=== PATIENT | male | born 1945 | race Caucasian/White ===

== ENCOUNTER 2018-05-04 06:38 | Outpatient (CLI) | payer MEDICARE, OTHER ==
[~2018-05-04] VITALS: Ht 180.3 cm; Wt 83.2 kg
--- NOTE | ~2018-05-04 | OP ---
PATIENT NAME: NGUYỄN FELTON MEDICAL RECORD: [id number] :49 LOCATION:D.CAT ADMISSION DATE: SURGEON: KOSTA GIVENS MD DATE OF OPERATION: 05/04/2018 PROCEDURE: Left heart catheterization, LV gram, coronary angiogram. EX ASSISTANT/PROGRAM DIRECTOR: Kosta Givens MD PROCEDURE IN DETAIL: The patient was brought to cardiac catheterization lab in a stable condition. The patient had the right wrist sterilely prepped and draped. The patient had a 6-Honduran sheath placed in the right radial artery using modified Seldinger technique. The patient then had selective angiography of the left ventricular cavity, the right coronary artery and the left main coronary artery respectively. FINDINGS: 1. The RCA is a large dominant vessel with 2 segmental stenoses of 70% both ostially and in the mid with good flow characteristics distally. 2. The left main has plaquing. 3. The LAD has a mid diagonal with an ostial 80% to 90% stenosis and a mid to distal LAD that is 90% stenosed. 4. The circumflex has a 70% mid lesion and a 50% proximal OM. HEMODYNAMICS: Left ventricular ejection fraction 65%. There is no significant mitral regurgitation. There is no gradient across the aortic valve. The ejection fraction is 60%. IMPRESSION: Multivessel coronary artery disease. RECOMMENDATIONS: Consider coronary artery bypass grafting. TRANSINT:[id number] Voice Confirmation ID: [id number] DOCUMENT ID: [id number] KOSTA GIVENS MD at 0849 CC: [id number] DICTATION DATE: 05/04/18 0928 CORRESPONDENCE SECTION SUPERVISOR: 05/04/18 0947 DEP CLI 05/04/18 [place] [id number]
--- NOTE | ~2018-05-04 | HEMODYNAMI ---
PATIENT:NGUYỄN FELTON MEDICAL RECORD: [id number] : 49 LOCATION:DANGE ADMISSION DATE: 05/04/18 Generatedon:05/04/20189:27 Patient name: NGUYỄN FELTON Patient #: [id number] SSN: : 1945 Date of study: 05/04/2018 Page: Of Hemodynamic Procedure Report Patient Data Patient Demographics Procedure consent was obtained First Name: NGUYỄN Gender: Male Last Name: JOSE FRANCISCO : 1945 Patient #: [id number] Age: 72 year(s) Race: Unknown Additional ID: [id number] Contact details Address: [address] [place] [address] State: [place] City: [place] Zip code: [address] Past Medical History Allergies: No known allergies Admission Admission Data Admission Date: 05/04/2018 Admission Time: 6:38 Admit Source: Other Height (in.): 5.11 BSA: 0.31 (m2) Height (cm.): 12.98 BMI: 5196.53 (kg/m2) Weight (lbs.): 193 Weight (kg.): 87.54 Lab Results Lab Result Date: 05/04/2018 Lab Result Time: 0:00 Biochemistry Name Units Result Min Max BUN mg/dl 16 --(---*)-- 7 18 Creatinine mg/dl 0.8 --(-*--)-- 0.6 1.3 CBC Name Units Result Min Max Hemoglobin g/dl 15.1 --(-*--)-- 13.5 17.5 Procedure Procedure Types Cath Procedure Diagnostic Procedure LHC LHC w/Coronaries Sedation Charges Moderate Sedation up to 15 minutes Procedure Description Procedure Date Procedure Date: 05/04/2018 Procedure Start Time: 9:10 Procedure End Time: 9:27 Procedure Staff Name Function Kosta Leung MD Performing Physician Mariel Alford RT Monitor Alfonso Frias RT Scrub Cas Patel RN Nurse Procedure Data Cath Procedure Fluoroscopy Diagnostic fluoroscopy Total fluoroscopy Time: 2.3 time: 2.3 min min Diagnostic fluoroscopy Total fluoroscopy dose: 609 dose: 609 mGy mGy Contrast Material Contrast Material Type Amount (ml) Isovue 300 49 Entry Location Entry Primary Successful Side Size Upsize Upsize Entry Closure Payne ccessful Closure Location (Fr) 1 (Fr) 2 (Fr) Remarks Device Remarks Radial Right 6 Fr Mechanical artery Short Compression Estimated blood loss: 5 ml Diagnostic catheters Device Type Used For End Catheter Placement DIAGNOSTIC Junior 110cm Procedure 5Fr catheter ([id number]) Procedure Complications No complications Procedure Medications Medication Administration Route Dosage 0.9% NaCl I.V. 100 ml/hr Oxygen etCO2 Nasal cannula 2 l/min Heparin Flush Bag added to field 2 bags (1000units/500ml NS) Lidocaine 2% added to field 20 Radial Cocktail added to field 1 syringe (Verapomil 2mg/Nitro 400mcg/Heparin 1500units) Versed I.V. 1 mg Fentanyl I.V. 25 mcg Radial Cocktail I.A. 1 syringe (Verapomil 2mg/Nitro 400mcg/Heparin 1500units) Hemodynamics Rest BSA: 0.31 (m2) HGB: 15.1 (g/dl) O2 Consumption: Estimated: 33.3 (ml/min) O2 Cons umption indexed: Estimated:107.42 (ml/min/m) Heart Rate: 48 (bpm) Pressure Samples Time Site Value (mmHg) Purpose Heart Use Rate(bpm) 9:19 LV 121/-7,8 EDP 60 Gradients Valve Time Site Site Mean SEP/DFP Peak To Heart Use 1 2 (mmHg) (sec/min) Peak Rate (mmHg) (bpm) Aortic 9:20 LV AO 71 Snapshots Pre Cath Intra NCS Post Cath Vital Signs Time Heart Resp SPO2 etCO2 NIBP (mmHg) Rhythm Pain Sedation Rate (ipm) (%) (mmHg) Status Level (bpm) 8:56:19 75 18 100 33 140/81(118) Paced 0 (11) 10(A) , No pain 9:01:02 60 17 100 33 127/75(102) Paced 0 (11) 10(A) , No pain 9:05:40 60 16 100 24.7 132/77(103) Paced 0 (11) 10(A) , No pain 9:10:22 60 15 96 36 119/69(97) Paced 0 (11) 9(A) , No pain 9:14:57 60 15 96 0 125/81(95) Paced 0 (11) 9(A) , No pain 9:19:37 60 15 96 0 110/64(79) Paced 0 (11) 10(A) , No pain 9:24:48 60 15 94 0 119/67(94) Paced 0 (11) 10(A) , No pain Medications Time Medication Route Dose Verified Delivered Reason Notes Effectiveness by by 9:01:37 0.9% NaCl I.V. 100 Cas Cas Per ml/hr Amanda Patel physician RN RN 9:01:47 Oxygen etCO2 2 l/min Cas Cas Per Nasal Amanda Patel physician cannula RN RN 9:02:02 Heparin Flush added 2 bags Cas Cas used for Bag to Amanda Patel procedure (1000units/500ml field RN RN NS) 9:02:12 Lidocaine 2% added 20ml Cas Cas for local to vial Lorigan Lorigan anesthetic RN RN 9:02:22 Radial Cocktail added 1 Cas Cas used for (Verapomil to syringe Xeniaigan Amanda procedure 2mg/Nitro field LIGHT RN 400mcg/Heparin 1500units) 9:05:16 Versed I.V. 1 mg Cas Cas for sedation Amanda Patel RN RN 9:05:25 Fentanyl I.V. 25 mcg Cas Cas for sedation Amanda Patel RN RN 9:15:13 Radial Cocktail I.A. 1 Cas Kosta for (Verapomil syringe Amanda Leung MD vasodilation 2mg/Nitro RN 400mcg/Heparin 1500units) Procedure Log Time Note 8:41:19 Informed consent obtained and on chart 8:41:23 Admit Source: Other 8:41:49 Diagnostic Cath status Elective 8:41:50 Cas Paetl RN sent for patient. Start room use. 8:41:52 Time tracking: Regular hours (M-F 7:00 - 5:00) 8:41:55 Plan of Care:Hemodynamics will remain stable., Cardiac rhythm will remain stable., Comfort level will be maintained., Respiratory function will remain adequate., Patient/ family verbilizes understanding of procedure., Procedure tolerated without complication., Recovers from procedure without complications.. 8:44:49 H&P Date Dictated: 05/03/2018 Within 30 days and on chart., H&P Addendum completed by physician on day of procedure. (MUST COMPLETE FOR ALL OUTPATIENTS). 8:44:55 Patient allergic to No known allergies 8:45:03 Patient Height : 5.11 inches 8:45:07 Patient Weight : 193 lbs 8:46:54 Lab Result : BUN 16 mg/dl 8:46:54 Lab Result : Hemoglobin 15.1 g/dl 8:46:54 Lab Result : Creatinine 0.8 mg/dl 8:48:30 Patient received from Pre/Post Procedure Room to CCL 1 Alert and oriented. Tansferred to table in Supine position. 8:48:31 Warm blankets applied, and michael hugger turned on for patient comfort. 8:48:32 Correct patient and procedure confirmed by team. 8:48:33 ECG and BP/O2 sat monitors applied to patient. 8:55:27 Vital chart was started 8:55:30 Baseline sample Acquired. 9:01:31 Rhythm: paced 9:01:32 Full Disclosure recording started 9:01:33 Pre-procedure instructions explained to patient. 9:01:33 Pre-op teaching completed and patient verbalized understanding. 9:01:35 Family in patients room. 9:01:36 Patient NPO since Midnight. 9:01:37 0.9% NaCl 100 ml/hr I.V. was administered by Cas Patel RN; Per physician; 9:01:38 Is the patient allergic to Iodine/contrast media? No. 9:01:39 Is patient on blood thinner?Yes 9:01:41 ACC The patient was administered the following blood thiners within the last 24 hours: ACCPlavix 9:01:42 Patient diabetic? Yes. 9:01:43 If diabetic: On Metformin? Yes 9:01:46 If on Metformin: Last Dose? 05/03/2018 9:01:47 Oxygen 2 l/min etCO2 Nasal cannula was administered by Cas Patel RN; Per physician; 9:01:51 Previous problem with sedation/anesthesia? Yes ? 9:01:53 Snore? No 9:01:54 Sleep apnea? No 9:01:55 Deviated septum? No 9:01:56 Opens mouth fully? Yes 9:01:57 Sticks out tongue? Yes 9:01:58 Airway obstruction? No ? 9:01:59 Dentures? Yes ? 9:02:02 Heparin Flush Bag (1000units/500ml NS) 2 bags added to field was administered by Cas Patel RN; used for procedure; 9:02:12 Lidocaine 2% 20ml vial added to field was administered by Cas Patel RN; for local anesthetic; 9:02:17 Modified Kael's test Radial < 7 seconds 9:02:21 Patient pain scale 0/10 ?. 9:02:22 Radial Cocktail (Verapomil 2mg/Nitro 400mcg/Heparin 1500units) 1 syringe added to field was administered by Cas Patel RN; used for procedure; 9:02:25 IV patent on arrival in left antecubital with 0.9% NaCl at [facility]. 9:02:29 Lab results completed and on chart. 9:02:39 Right Radial & Right Groin area was prepped with chlora-prep and draped in sterile fashion 9:02:39 Alarms reviewed by R. N. 9:02:40 Sharps counted by scrub and verified by R.N. 9:02:42 --------ALL STOP TIME OUT------ 9:02:44 Final Timeout: patient, procedure, and site verified with staff and physician. All members of the team are in agreement. 9:02:45 Right Radial & Right Groin site verified by team. 9:02:49 Physical assessment completed. ASA score P 2 - A patient with mild systemic disease as per Kosta Leung MD. 9:02:52 Sedation plan: IV Moderate Sedation Medication:Versed, Fentanyl 9:03:18 Use device set Radial Dx or PCI 9:03:19 ACIST Syringe (01523) opened to sterile field. 9:03:20 ACIST Hand Control (34915) opened to sterile field. 9:03:21 ACIST Manifold (43799) opened to sterile field. 9:03:21 Tegaderm 4 x 4 (1626W) opened to sterile field. 9:03:23 Bag Decanter () opened to sterile field. 9:03:24 Medline Cath Pack ([id number]) opened to sterile field. 9:03:24 DIAGNOSTIC WIRE .035 260cm J wire (627510) opened to sterile field. 9:03:24 MBrace Wrist Support ([id number]) opened to sterile field. 9:03:25 SHEATH 6Fr Prelude Radial ([id number]) opened to sterile field. 9:05:16 Versed 1 mg I.V. was administered by Cas Patel RN; for sedation; 9:05:25 Fentanyl 25 mcg I.V. was administered by Cas Patel RN; for sedation; 9:09:51 Zero performed for pressure channel P1 9:10:03 Zero performed for pressure channel P1 9:10:13 Procedure started. 9:10:20 Local anesthetic to right radial artery with Lidocaine 2% by Kosta Leung MD.INITIAL ACCESS ONLY 9:15:13 Radial Cocktail (Verapomil 2mg/Nitro 400mcg/Heparin 1500units) 1 syringe I.A. was administered by Kosta Leung MD; for vasodilation; 9:16:41 A 6 Fr Short sheath was inserted into the Right Radial artery 9:16:50 A DIAGNOSTIC Junior 110cm 5Fr catheter (832655) was advanced over the wire and used for Procedure. 9:18:11 LV gram done using [place]OLTON 9:18:27 Injector settings: Ml/sec: 12, Volume: 8, 9:19:32 LV hemodynamics recorded. 9:20:02 EF : 55 % 9:20:15 RCA angiography performed. 9:22:28 LCA angiography performed. 9:23:07 Catheter removed. 9:23:29 Procedure ended.(Physican Out) 9:23:57 Sheath removed intact; hemostasis achieved with Mechanical Compression to the Right Radial artery. 9:24:58 Fluoroscopy time 02.30 minutes. 9:25:08 Fluoroscopy dose: 609 mGy 9:25:08 Flurop Dose total: 609 9:25:13 Contrast amount:Isovue 300 49ml. 9:25:17 Sharps counted by scrub and verified by R.N. 9:25:25 Post-procedure physical assessment completed. ASA score P 2 - A patient with mild systemic disease as per Kosta Leung MD. 9:25:29 Post procedure rhythm: unchanged. 9:25:30 Estimated blood loss: 5 ml 9:25:32 Post procedure instruction explained to patient.Patient verbalizes understanding. 9:25:32 Patient needs reinforcement of post procedure teaching. 9:26:02 Procedure type changed to Cath procedure, Diagnostic procedure, LHC, LHC w/Coronaries, Sedation Charges, Moderate Sedation up to 15 minutes 9:26:44 TR BAND Standard ([id number]) opened to sterile field. 9:26:50 TR band inflated with 12cc of air. 9:27:18 Procedure and supply charges have been captured, reviewed, submitted and are correct. 9:27:20 Procedure Complication : No complications 9::23 Vital chart was stopped 9::23 See physician's report for complete and final results. 9:27:25 Report given to Pre/Post Procedure Room. 9:27:27 Patient transfered to Pre/Post Procedure Room with Bed. 9:27:29 Procedure ended. 9:27:29 Full Disclosure recording stopped 9:27:35 End room use (Document Last) Device Usage Item Name Manufacture Quantity Catalog Number Hospital Part Current M inimal Lot# / Charge Number Stock Stock Serial# Code ACIST Syringe Acist 1 70011 657596 389311 728117 2 0 (03202) [employer] ACIST Hand Acist 1 78061 809846 610113 811247 5 Control (60730) [employer] ACIST Manifold Acist 1 20558 352574 744579 045088 5 (22884) [employer] Tegaderm 4 x 4 3M 1 1626W 969376 793921 481332 5 (1626W) Bag Decanter Microtek 1 2002S 201074 83713 274778 5 (2002S) Medical Inc. Medline Cath Cardinal 1 [id number] 373602 35679 016338 5 [facility] ([id number]) DIAGNOSTIC WIRE [facility] 1 211883 314077 039201 231544 3 0 .035 260cm J wire (649568) MBrace Wrist Advanced 1 140-0250-00 953559 89156 730590 5 Support Vascular (001436403) Dynamics SHEATH 6Fr Merit 1 [id number] 054593 732937 633143 5 Prelude Radial Medical ([id number]) DIAGNOSTIC Terumo 1 40-5433 323851 168546 889065 5 Junior 110cm 5Fr catheter (464772) TR BAND Terumo 1 [id number] 444358 456582 881016 4 0 Standard ([id number]) Signature Audit [place] Stage Time Signature Unsigned Intra-Procedure 05/04/2018 Mariel Alford 9:27:50 AM RT(R) Signatures Monitor : Mariel Alford Signature : RT Date : Time : [address] [address]
[2018-05-04] MEDS ORDERED: GLUCOPHAGE500 MG PO (07:30)
[2018-05-04] MEDS ORDERED: ISOSORBIDE MONO60 M1 PO (07:31)
[2018-05-04] MEDS ORDERED: PLAVIX75 MG PO (07:31)
[2018-05-04] MEDS ORDERED: HUMULIN N100 U/ML SC (07:32)
[2018-05-04] MEDS ORDERED: AVAPRO150 MG PO (07:32)
[2018-05-04] MEDS ORDERED: BAYER CHEWABLE81 MG PO (07:33)
[2018-05-04] MEDS ORDERED: CRESTOR40 MG PO (07:33)
[2018-05-04] MEDS ORDERED: CO Q-10100 MG PO (07:34)
[2018-05-04] MEDS ORDERED: FISH OIL 1,0001 CA1 PO (07:34)
[2018-05-04] MEDS ORDERED: MULTI-DAY VITAM1 TAB PO (07:34)
[2018-05-04 07:50] VITALS: BP 150/66; BMI 25.5
[2018-05-04 08:00] LABS: BASOPHILS 0.5 % (0-2); EOSINOPHILS 2.5 % (0-7); HEMATOCRIT 43.5 % (42.0-54.0); HEMOGLOBIN 15.1 g/dL (13.5-17.5); IMMATURE GRANULOCYTES 0.3 % (0-5); LYMPHOCYTES 31.8 % (15-50); MCH 32.6 pg (26.0-34.0); MCHC 34.7 g/dL (31.0-37.0); MEAN PLATELET VOLUME 9.8 fL (7.4-10.4); NEUTROPHILS 51.9 % (40-80); PLATELET COUNT 182 10x3/uL (130-400); RBC 4.63 10x6/uL (4.20-6.10); RDW 12.7 % (11.5-14.5); WBC 5.9 10x3/uL (4.8-10.8)
[2018-05-04 08:13] LABS: CALC OSMOLALITY 275 mosm/kg (275-300); CALCIUM 9.3 mg/dL (8.5-10.1); CHLORIDE - SERUM 101 mmol/L (98-107); CREATININE - SERUM 0.8 mg/dL (0.6-1.3); GLUCOSE 113 mg/dL (74-106); POTASSIUM - SERUM 4.7 mmol/L (3.5-5.1); SODIUM 137 mmol/L (136-145); UREA NITROGEN 16 mg/dL (7-18); eGFR NON AFRICAN AMERICAN > 90 mL/min (90-120)
[2018-05-04 10:26] VITALS: Ht 180.3 cm; Wt 83.2 kg
[2018-05-04 11:00] LABS: PLT FUNCT.(P2Y12) PLAVIX 82 PRU (194-418)
[2018-05-09] MEDS ORDERED: HUMULIN N100 U/ML SC (09:48)
== END 2018-05-04 14:30 | disposition home or self-care (01) ==
LOC: D.CATH 06:38
PROVIDERS: Internal Medicine Cardiovascular Disease; Thoracic Surgery (Cardiothoracic Vascular Surgery)
DX: I25.119 Atherosclerotic heart disease of native coronary artery with unspecified angina pectoris (principal); Z01.812 Encounter for preprocedural laboratory examination

== ENCOUNTER 2018-05-09 10:00 | Inpatient (IN) | payer MEDICARE, OTHER ==
[~2018-05-09] VITALS: Ht 180.3 cm; Wt 91.5 kg
--- NOTE | ~2018-05-09 | TEE ---
PATIENT:NGUYỄN FELTON MEDICAL RECORD: [id number] LOCATION:[place] [address] AGE OF PATIENT: 72 ADMISSION DATE: 05/11/18 SEX: M REFERRING PHYSICIAN: INTERPRETING PHYSICIAN: AVRIL FELDER MD TRANSESOPHAGEAL ECHOCARDIOGRAM Date: DESIRAE CHARGE INDICATIONS: PREMEDICATIONS: PATIENT'S RESPONSE PROCEDURE DOPPLER MEASUREMENTS: LVIT LA PA RA LVOT RVOT Asc. Ao AV Gradient Peak AV Mean AV Area MV Gradient Peak MV Mean MV Area INTERPRETATION: Doppler: 2-D: COLOR FLOW DOPPLER NORMAL SALINE STUDY: MISCELLANOUS: DIAGNOSIS: PLAN: Cinder Pitman: Compliance Tester: COMMENTS: DATE OF SERVICE: 05/11/2018 PROCEDURE: Transesophageal echo evaluation of valvular structures during bypass surgery. FINDINGS: 1. Left ventricular chamber size is within normal limits. Left ventricular systolic function is normal. Overall ejection fraction estimated at 50%. 2. Left atrium, right atrium, right ventricle chamber size is within normal TRANSESOPHAGEAL ECHOCARDIOGRAM REPORT [id number] NGUYỄN FELTON limits. 3. Valvular structures have normal structure and motion. 4. Doppler interrogation only reveals trace to mild mitral regurgitation, no other valvular insufficiency or stenosis. 5. No evidence of pericardial effusion or left ventricular thrombus. TRANSINT:[id number] Voice Confirmation ID: [id number] DOCUMENT ID: [id number] at 1859 CC: [id number] DICTATION DATE: 05/12/18 1151 CLINICAL NURSING PROFESSOR: 05/12/18 1204 ADM IN [facility] [address] [place] [address]
--- NOTE | ~2018-05-09 | OP ---
PATIENT NAME: NGUYỄN FELTON MEDICAL RECORD: [id number] :49 LOCATION:D.CVI D.CV04 ADMISSION DATE:05/11/18 SURGEON: LD LOPEZ MD DATE OF OPERATION: 05/11/2018 SURGEON: Ld Lopez MD RESEARCH GENETICIST: Justo Everett MD OPERATION PERFORMED: Coronary artery bypass graft times 3 (left internal mammary artery to LAD, reverse saphenous vein graft from aorta to obtuse marginal and aorta to posterior descending artery). PREOPERATIVE DIAGNOSIS: Coronary artery disease. POSTOPERATIVE DIAGNOSIS: Coronary artery disease. ANESTHESIA: General endotracheal anesthesia. ESTIMATED BLOOD LOSS: Total cardiopulmonary bypass with Cell Saver retransfusion. COMPLICATIONS: None. SPECIMENS: None. CONDITION: Stable. DISPOSITION: CV ICU. OPERATIVE FINDINGS: 1. Good quality greater saphenous vein from the right lower leg and lower thigh. 2. Good quality internal mammary artery, slightly smaller in caliber distally, but with excellent flow. 3. Somewhat enlarged right heart with good contractility throughout and normal DESIRAE before and after cardiopulmonary bypass. 4. LAD was a severely diseased vessel throughout even beyond the stent with diffuse plaque extending all the way to the apex, anastomosis in the softest spot possible and a 1.5 mm probe passed distally to the apex. Good Doppler signal after anastomosis and after reversal of heparin. 5. Obtuse marginal 2.0 mm. 6. Right coronary was calcified throughout with no site for anastomosis. Posterior descending artery was slightly smaller 1.5 mm. The diagonal vessels were small and not grafted. OPERATIVE INDICATION: Coronary artery disease. OPERATIVE PROCEDURE IN DETAIL: The patient was brought to the operating suite. General anesthesia was obtained, the patient was prepped and draped. Greater saphenous vein was harvested from the right lower extremity utilizing bridging incisions. Side branches were divided with clips. Vessels ligated proximal and distally, removed. Side branches were tied and the vein was made hemostatic. Leg was closed in 2 layers including clips. OPERATIVE REPORT [id number] NGUYỄN FELTON Median sternotomy incision was made. Subcutaneous tissue divided with electrocautery. The sternum was divided with a saw. The left hemisternum was elevated. The pleural cavity was entered. Left internal mammary artery and vein was taken down as a pedicle graft. Sternal retractor was placed. Pericardium was opened. Heparin was given. Aorta was cannulated. Dual stage venous cannula was inserted. The internal mammary was clipped distally and made ready for anastomosis. The patient was placed on cardiopulmonary bypass after activating clotting time was appropriately elevated. Sites for distal anastomoses were selected. Antegrade cardioplegia needle was inserted. The patient's temperature was allowed to drift downwardly during crossclamp time. Crossclamp was placed. Cardioplegia was given antegrade and this was repeated at 15 to 20 minute intervals including down the completed vein grafts. Distal anastomosis was performed in standard technique. Proximal anastomosis with single cross-clamp technique. The aortic root was de-aired with the patient in Trendelenburg position by removing the clamp, tying the proximal anastomoses, deairing the vein graft, and then restoring flow. Proximal and distal anastomotic sites were inspected for bleeding. The patient fully rewarmed, weaned from cardiopulmonary bypass and was stable. The patient was decannulated. Cannulation sites were oversewn. Protamine was given. Thorough irrigation was undertaken. All grafts lay appropriately. Drains were placed in the mediastinum and left pleural cavity. The patient's indwelling atrioventricular pacemaker was working appropriately. The left chest was evacuated and irrigated. The internal mammary harvest site was inspected. Sternum was closed with wires. Fascia was closed. Subcutaneous tissue was closed. Skin was closed with clips. Dressing was intact. The patient was taken to the ICU in stable condition. TRANSINT:[id number] Voice Confirmation ID: [id number] DOCUMENT ID: [id number] LD LOPEZ MD at 1101 CC: JOHNSON BLACKMAN M.D. [id number] DICTATION DATE: 05/11/18 1225 HEAD BONE GRINDER: 05/11/18 1241 ADM IN [place] [id number] [place] [address]
[~2018-05-09 10:00] MED LIST: AVAPRO150 MG PO; BAYER CHEWABLE81 MG PO; CO Q-10100 MG PO; CRESTOR40 MG PO; FISH OIL 1,0001 CA1 PO; GLUCOPHAGE500 MG PO; HUMULIN N100 U/ML SC; ISOSORBIDE MONO60 M1 PO; MULTI-DAY VITAM1 TAB PO; PLAVIX75 MG PO
[2018-05-09 11:40] LABS: BASOPHILS 0.6 % (0-2); EOSINOPHILS 3.7 % (0-7); HEMOGLOBIN 14.1 g/dL (13.5-17.5); LYMPHOCYTES 37.5 % (15-50); MCH 32.1 pg (26.0-34.0); MCHC 34.4 g/dL (31.0-37.0); MCV 93.4 fL (80.0-100.0); MONOCYTES 8.7 % (2-11); NEUTROPHILS 49.5 % (40-80); PLATELET COUNT 198 10x3/uL (130-400); RBC 4.39 10x6/uL (4.20-6.10); RDW 12.6 % (11.5-14.5); WBC 4.9 10x3/uL (4.8-10.8)
[2018-05-09 11:50] LABS: APPEARANCE CLEAR (CLEAR); BILIRUBIN NEGATIVE (NEGATIVE); COLOR YELLOW (YELLOW); GLUCOSE 1000 mg/dL (NEGATIVE); KETONE NEGATIVE (NEGATIVE); NITRITE NEGATIVE (NEGATIVE); PROTEIN NEGATIVE (NEGATIVE); SPECIFIC GRAVITY 1.015 (1.005-1.020); UROBILINOGEN NORMAL (NORMAL)
[2018-05-09 11:51] LABS: APTT 26.5 SECONDS (22.8-39.4); INR 1.03 (0.85-1.17); PROTIME 13.1 SECONDS (11.6-15.0)
[2018-05-09 11:57] LABS: PLT FUNCT.(P2Y12) PLAVIX 176 PRU (194-418)
[2018-05-09 12:05] LABS: ALBUMIN 3.9 g/dL (3.4-5.0); ALKALINE PHOSPHATASE 37 U/L (46-116); ALT (SGPT) 33 U/L (10-68); BILIRUBIN - TOTAL 0.32 mg/dL (0.2-1.3); CALC OSMOLALITY 273 mosm/kg (275-300); CARBON DIOXIDE 29.7 mmol/L (21.0-32.0); CHLORIDE - SERUM 100 mmol/L (98-107); CHOLESTEROL, TOTAL 132 mg/dL (0-200); CREATININE - SERUM 0.8 mg/dL (0.6-1.3); GLUCOSE 104 mg/dL (74-106); PHOSPHOROUS 2.8 mg/dL (2.5-4.9); POTASSIUM - SERUM 3.9 mmol/L (3.5-5.1); PROTEIN - SERUM 8.5 g/dL (6.4-8.2); SODIUM 137 mmol/L (136-145); T4 THYROXIN - FREE 0.98 ng/dL (0.76-1.46); THYROID STIMULATING HORMONE 4.07 uIU/mL (0.36-3.74); UREA NITROGEN 12 mg/dL (7-18); URIC ACID 4.6 mg/dL (2.6-7.2); eGFR NON AFRICAN AMERICAN > 90 mL/min (90-120)
[2018-05-11] VITALS (47 sets, daily range): BP systolic 93–157; BP diastolic 49–72; BMI 25.5; BMI 27.3
[2018-05-12] VITALS (25 sets, daily range): BP systolic 104–140; BP diastolic 49–75; Ht 180.3 cm; Wt 91.5 kg
[2018-05-12 06:27] LABS: HEMATOCRIT 38.8 % (42.0-54.0); HEMOGLOBIN 12.9 g/dL (13.5-17.5); MCH 31.3 pg (26.0-34.0); MCHC 33.2 g/dL (31.0-37.0); MCV 94.2 fL (80.0-100.0); MEAN PLATELET VOLUME 10.1 fL (7.4-10.4); RBC 4.12 10x6/uL (4.20-6.10); RDW 13.3 % (11.5-14.5); WBC 12.6 10x3/uL (4.8-10.8)
[2018-05-12 06:35] LABS: ALBUMIN 3.1 g/dL (3.4-5.0); ANION GAP 11.5 mmol/L (8-16); BILIRUBIN - TOTAL 0.74 mg/dL (0.2-1.3); CALCIUM 7.3 mg/dL (8.5-10.1); CARBON DIOXIDE 25.7 mmol/L (21.0-32.0); CREATININE - SERUM 1.1 mg/dL (0.6-1.3); POTASSIUM - SERUM 4.2 mmol/L (3.5-5.1); PROTEIN - SERUM 6.4 g/dL (6.4-8.2)
[2018-05-13] VITALS (24 sets, daily range): BP systolic 100–152; BP diastolic 49–87
[2018-05-13 05:27] LABS: HEMATOCRIT 32.7 % (42.0-54.0); HEMOGLOBIN 10.7 g/dL (13.5-17.5); MCH 31.3 pg (26.0-34.0); MCHC 32.7 g/dL (31.0-37.0); MCV 95.6 fL (80.0-100.0); MEAN PLATELET VOLUME 9.7 fL (7.4-10.4); RBC 3.42 10x6/uL (4.20-6.10); RDW 13.4 % (11.5-14.5)
[2018-05-13 05:51] LABS: ALBUMIN 2.6 g/dL (3.4-5.0); ALKALINE PHOSPHATASE 28 U/L (46-116); ALT (SGPT) 24 U/L (10-68); BILIRUBIN - TOTAL 0.59 mg/dL (0.2-1.3); CALCIUM 7.2 mg/dL (8.5-10.1); CARBON DIOXIDE 27.7 mmol/L (21.0-32.0); CHLORIDE - SERUM 103 mmol/L (98-107); CREATININE - SERUM 0.9 mg/dL (0.6-1.3); POTASSIUM - SERUM 4.2 mmol/L (3.5-5.1); PROTEIN - SERUM 5.8 g/dL (6.4-8.2); SODIUM 135 mmol/L (136-145); UREA NITROGEN 12 mg/dL (7-18); eGFR NON AFRICAN AMERICAN 89 mL/min (90-120)
[2018-05-13 05:55] LABS: CALC OSMOLALITY 271 mosm/kg (275-300); GLUCOSE 136 mg/dL (74-106)
[2018-05-14] VITALS (25 sets, daily range): BP systolic 105–125; BP diastolic 44–97
[2018-05-14 06:13] LABS: HEMATOCRIT 32.1 % (42.0-54.0); HEMOGLOBIN 10.6 g/dL (13.5-17.5); MCH 31.4 pg (26.0-34.0); MEAN PLATELET VOLUME 10.1 fL (7.4-10.4); RBC 3.38 10x6/uL (4.20-6.10); RDW 13.3 % (11.5-14.5); WBC 11.7 10x3/uL (4.8-10.8)
[2018-05-14 06:31] LABS: ALBUMIN 2.6 g/dL (3.4-5.0); BILIRUBIN - TOTAL 0.65 mg/dL (0.2-1.3); CALCIUM 7.7 mg/dL (8.5-10.1); CARBON DIOXIDE 26.4 mmol/L (21.0-32.0); CREATININE - SERUM 1.1 mg/dL (0.6-1.3); POTASSIUM - SERUM 4.4 mmol/L (3.5-5.1); PROTEIN - SERUM 6.5 g/dL (6.4-8.2)
[2018-05-15] VITALS (22 sets, daily range): BP systolic 100–129; BP diastolic 54–68
[2018-05-15 06:16] LABS: ALBUMIN 2.6 g/dL (3.4-5.0); ALKALINE PHOSPHATASE 37 U/L (46-116); ALT (SGPT) 31 U/L (10-68); CALC OSMOLALITY 279 mosm/kg (275-300); CALCIUM 7.8 mg/dL (8.5-10.1); CARBON DIOXIDE 27.5 mmol/L (21.0-32.0); CHLORIDE - SERUM 100 mmol/L (98-107); GLUCOSE 200 mg/dL (74-106); MAGNESIUM - SERUM 1.8 mg/dL (1.8-2.4); POTASSIUM - SERUM 4.1 mmol/L (3.5-5.1); PROTEIN - SERUM 6.5 g/dL (6.4-8.2); SODIUM 136 mmol/L (136-145); UREA NITROGEN 18 mg/dL (7-18); eGFR NON AFRICAN AMERICAN 78 mL/min (90-120)
[2018-05-15 06:30] LABS: HEMATOCRIT 30.5 % (42.0-54.0); HEMOGLOBIN 10.1 g/dL (13.5-17.5); MCH 31.4 pg (26.0-34.0); MCHC 33.1 g/dL (31.0-37.0); MCV 94.7 fL (80.0-100.0); MEAN PLATELET VOLUME 10.1 fL (7.4-10.4); RBC 3.22 10x6/uL (4.20-6.10); RDW 13.3 % (11.5-14.5)
[2018-05-15 06:39] LABS: WBC 8.1 10x3/uL (4.8-10.8)
[2018-05-16] VITALS (8 sets, daily range): BP systolic 108–135; BP diastolic 52–86
[2018-05-16 05:47] LABS: HEMATOCRIT 32.3 % (42.0-54.0); HEMOGLOBIN 10.8 g/dL (13.5-17.5); MCH 31.5 pg (26.0-34.0); MCHC 33.4 g/dL (31.0-37.0); MCV 94.2 fL (80.0-100.0); MEAN PLATELET VOLUME 9.8 fL (7.4-10.4); RBC 3.43 10x6/uL (4.20-6.10); RDW 13.4 % (11.5-14.5); WBC 7.7 10x3/uL (4.8-10.8)
[2018-05-16 06:06] LABS: ALBUMIN 2.8 g/dL (3.4-5.0); ALKALINE PHOSPHATASE 40 U/L (46-116); ALT (SGPT) 40 U/L (10-68); BILIRUBIN - TOTAL 0.73 mg/dL (0.2-1.3); CALC OSMOLALITY 278 mosm/kg (275-300); CALCIUM 7.9 mg/dL (8.5-10.1); CHLORIDE - SERUM 101 mmol/L (98-107); CREATININE - SERUM 0.9 mg/dL (0.6-1.3); GLUCOSE 157 mg/dL (74-106); POTASSIUM - SERUM 4.3 mmol/L (3.5-5.1); PROTEIN - SERUM 6.3 g/dL (6.4-8.2); SODIUM 137 mmol/L (136-145); UREA NITROGEN 17 mg/dL (7-18); eGFR NON AFRICAN AMERICAN 89 mL/min (90-120)
[2018-05-16] MEDS ORDERED: LOPRESSOR25 MG PO (12:27)
[2018-05-16] MEDS ORDERED: LASIX40 MG PO (12:33)
[2018-05-16] MEDS ORDERED: K-DUR20 MEQ PO (12:38)
[2018-05-16] MEDS ORDERED: COLACE100 MG PO (12:39)
[2018-05-16] MEDS ORDERED: CORDARONE PO (12:46)
[2018-05-16] MEDS ORDERED: PERCOCET 5-3251 TAB PO (12:46)
== END 2018-05-16 13:50 | disposition home or self-care (01) | DRG 236 ==
LOC: D.SDCHOLD 10:30 → D.CVICU 05-11 05:00 → D.SDCHOLD 05-11 07:30 → D.CVICU 05-11 11:46
PROVIDERS: Thoracic Surgery (Cardiothoracic Vascular Surgery)
PROC: 021109W Bypass Coronary Artery, Two Arteries from Aorta with Autologous Venous Tissue, Open Approach (ICD-10-PCS; 2018-05-11)
PROC: 06BP0ZZ Excision of Right Saphenous Vein, Open Approach (ICD-10-PCS; 2018-05-11)
PROC: 5A1221Z Performance of Cardiac Output, Continuous (ICD-10-PCS; 2018-05-11)
PROC: B24BZZ4 Ultrasonography of Heart with Aorta, Transesophageal (ICD-10-PCS; 2018-05-11)
PROC: 02100Z9 Bypass Coronary Artery, One Artery from Left Internal Mammary, Open Approach (ICD-10-PCS; principal; 2018-05-11 07:30)
DX: I25.110 Atherosclerotic heart disease of native coronary artery with unstable angina pectoris (principal); G89.18 Other acute postprocedural pain; E78.5 Hyperlipidemia, unspecified; I10 Essential (primary) hypertension; Z95.0 Presence of cardiac pacemaker; E11.9 Type 2 diabetes mellitus without complications

== ENCOUNTER → 2018-06-07 13:38 | Outpatient (CLI) | payer MEDICARE, OTHER ==
[2018-05-12 12:44] VITALS: BMI 27.4
[~2018-06-07 13:38] MED LIST changes: +COLACE100 MG PO; +CORDARONE PO; +K-DUR20 MEQ PO; +LASIX40 MG PO; +LOPRESSOR25 MG PO; +PERCOCET 5-3251 TAB PO
[2018-06-07 14:36] LABS: HEMOGLOBIN 12.1 g/dL (13.5-17.5); MCH 31.6 pg (26.0-34.0); MCHC 32.7 g/dL (31.0-37.0); MCV 96.6 fL (80.0-100.0); MEAN PLATELET VOLUME 9.4 fL (7.4-10.4); RBC 3.83 10x6/uL (4.20-6.10); RDW 14.1 % (11.5-14.5); WBC 6.1 10x3/uL (4.8-10.8)
[2018-06-07 14:55] LABS: ALBUMIN 3.4 g/dL (3.4-5.0); BILIRUBIN - TOTAL 0.15 mg/dL (0.2-1.3); CALCIUM 8.9 mg/dL (8.5-10.1); CARBON DIOXIDE 26.9 mmol/L (21.0-32.0); CREATININE - SERUM 1.2 mg/dL (0.6-1.3); POTASSIUM - SERUM 3.9 mmol/L (3.5-5.1); PROTEIN - SERUM 7.8 g/dL (6.4-8.2)
== END | disposition home or self-care (01) ==
LOC: D.LAB 08:00 → D.RAD 08:15 → D.LAB 13:38
PROVIDERS: Thoracic Surgery (Cardiothoracic Vascular Surgery)
DX: D64.9 Anemia, unspecified (principal); J90 Pleural effusion, not elsewhere classified